=== PATIENT | male | born 1970 | race Two or more races ===

== ENCOUNTER 2019-06-15 04:23 | Emergency (ER) | payer OTHER ==
[~2019-06-15] VITALS: Ht 180.3 cm; Wt 83.0 kg
[~2019-06-15 04:23] MED LIST: HYDR7.5T
[2019-06-15] MEDS ORDERED: HYDROcodone-ACET 10/325MG TAB PO ONE (07:15)
[2019-06-15 07:53] VITALS: BP 136/88
== END 2019-06-15 08:24 | disposition home or self-care (01) ==
LOC: ER 04:23
DX: S00.83XA Contusion of other part of head, initial encounter (principal); S16.1XXA Strain of muscle, fascia and tendon at neck level, initial encounter; T14.90XA Injury, unspecified, initial encounter; Z79.899 Other long term (current) drug therapy; Y04.2XXA Assault by strike against or bumped into by another person, initial encounter; Y93.89 Activity, other specified; Y92.89 Other specified places as the place of occurrence of the external cause; Y99.8 Other external cause status
CPT/HCPCS: 70450; 70486; 72125